=== PATIENT | female | born 1990 | race Caucasian/White ===

== ENCOUNTER → 2016-12-18 | Outpatient (CLI) | payer BC ==
[~2016-12-18] MED LIST: CALC1CAP24 PO; FERR1TAB23 PO; GLUT1TAB PO; MAGN-22 PO; MISCCAP80 PO; PREN1TAB29 PO
[2016-12-22 00:30] LABS: PARVOVIRUS IgG INDEX 7.8 (<0.9); PARVOVIRUS IgM INDEX 0.1 (<0.9)
== END | disposition home or self-care (01) ==
LOC: C.LAB 17:35
PROVIDERS: ATTEND Obstetrics & Gynecology
DX: O98.812 Other maternal infectious and parasitic diseases complicating pregnancy, second trimester (principal); Z20.828 Contact with and (suspected) exposure to other viral communicable diseases; Z3A.27 27 weeks gestation of pregnancy

== ENCOUNTER → 2016-12-27 | Outpatient (CLI) | payer BC ==
[2016-12-27 14:47] LABS: HEMATOCRIT 30.2 % (37-47)
[2016-12-27 15:47] LABS: URINE APPEARANCE CLEAR (CLEAR); URINE BILIRUBIN NEG (NEG); URINE COLOR YELLOW; URINE EPITHELIAL CELL AUTO >30 /lpf (0-5); URINE NITRITE NEG (NEG); URINE PH 8.5 (4.5-7.5); URINE SPECIFIC GRAVITY 1.011 (1.000-1.030); UROBILINOGEN NEG (NEG)
[2016-12-27 15:52] LABS: MANUAL MICROSCOPIC REQUIRED? NO; REVIEW REQ? NO
[2016-12-27 20:16] LABS: GTGD 50 Grams
== END | disposition home or self-care (01) ==
LOC: C.LAB1850 12:59
PROVIDERS: ATTEND Obstetrics & Gynecology
DX: Z34.03 Encounter for supervision of normal first pregnancy, third trimester (principal)

== ENCOUNTER → 2017-01-04 | Outpatient (CLI) | payer BC ==
[2017-01-04 10:02] LABS: ALT/SGPT 19 U/L (12-78); AST/SGOT 13 U/L (15-37); BLOOD UREA NITROGEN 6 mg/dl (7-18); BUN/CREATININE RATIO 14.2 (10-20); CALCIUM 8.7 mg/dl (8.5-10.1); CARBON DIOXIDE 26 mmol/L (21-32); CHLORIDE 104 mmol/L (98-107); CREATININE 0.44 mg/dl (0.60-1.20); GLUCOSE 90 mg/dl (70-99); POTASSIUM 3.8 mmol/L (3.5-5.1); SODIUM 138 mmol/L (136-145)
[2017-01-04 10:06] LABS: ALB/GLOB RATIO 0.6 (0.9-2); ALKALINE PHOSPHATASE 120 U/L (45-117); CHOLESTEROL 207 mg/dl (0-200); CHOLESTEROL/HDL RATIO 3.3; HDL CHOLESTEROL 62 mg/dl; LDL CHOLESTEROL CALCULATED 108 mg/dl; TRIGLYCERIDES 185 mg/dl (0-150); VERY LOW DENSITY LIPOPROT CALC 37 mg/dl
== END | disposition home or self-care (01) ==
LOC: C.LAB1850 07:35
PROVIDERS: ATTEND Obstetrics & Gynecology
DX: Z13.220 Encounter for screening for lipoid disorders (principal); O28.1 Abnormal biochemical finding on antenatal screening of mother; R19.00 Intra-abdominal and pelvic swelling, mass and lump, unspecified site; Z3A.00 Weeks of gestation of pregnancy not specified

== ENCOUNTER → 2017-02-22 | Outpatient (CLI) | payer BC | END | disposition home or self-care (01) | LOC: C.LABSPEC 15:24 | PROVIDERS: ATTEND Obstetrics & Gynecology | DX: Z34.03 Encounter for supervision of normal first pregnancy, third trimester (principal) ==

== ENCOUNTER 2017-03-06 11:35 | Inpatient (IN) | payer BC ==
[~2017-03-06] VITALS: Ht 157.5 cm; Wt 62.0 kg
[~2017-03-06 11:35] MED LIST changes: -CALC1CAP24 PO; -FERR1TAB23 PO
[2017-03-06] MEDS ORDERED: LACTATED RINGER'S 1000ML 1,000 ML IV SCH (12:22)
[2017-03-06] MEDS ORDERED: LACTATED RINGER'S 1000ML 1,000 ML IV PRN (12:22)
[2017-03-06 12:46] VITALS: Ht 157.5 cm; Wt 62.0 kg
[2017-03-06 12:54] LABS: HEMATOCRIT 37.6 % (37-47); MEAN CELL VOLUME 87.6 fL (80-100); MEAN CORPUSCULAR HEMOGLOBIN 31.2 pg (25-34); MEAN CORPUSCULAR HGB CONC 35.6 g/dl (32-36); MEAN PLATELET VOLUME 9.1 fL (7.4-10.4); PLATELET COUNT 263 K/uL (130-400); RED BLOOD COUNT 4.29 M/uL (4.2-5.4); WHITE BLOOD COUNT 11.75 K/uL (4.8-10.8)
--- NOTE | 2017-03-06 14:23 | Medical Student: [facility] ---
Med Student History & Physical Date of Service March 06, 2017. Chief Complaint R/O Labor History of Present Illness Source: patient, clinic records Pt is a 26yo F , URVASHI 03/17/17 via US and GA 38-3 weeks who presents for contractions. Her contractions began at ~15 min apart when she first called the hospital. She was told to call again when they were 5 mins. She did and was told to come in. As of now, her course has been uncomplicated. She has had no fluid loss, had some mild bleeding/mucus this morning. 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 Menarche: 14, LMP: 05/23/16 Last pap smear was ASGUS, but HPV neg Past Medical History UTI's and asthma (no inhaler) Past Surgical History Hx of inguinal hernia repair (2015) Family History No significant family hx Social History Smoking Status: Never Smoker Smokeless Tobacco Use: No Alcohol Use: none Drug Use: none Marital Status: Housing status: lives with significant other Occupational Status: employed Allergies Coded Allergies: NO KNOWN DRUG ALLERGIES (Verified Allergy, Unknown, ., 04/20/16) Dairy (Verified Adverse Reaction, Unknown, GI UPSET, 04/20/16) Home Medications Glutamine (L-Glutamine), 1 TAB PO BID Magnesium Malate (Bulk) (Magnesium Malate), 1 TAB PO HS Vit W/ Ferrous Fumara (), 1 TAB PO NOON Probiotic Product (Probiotic), 1 CAP PO QPM Review of Systems Constitutional: No chills, No fever, No sweats Eyes: No worsening of vision Respiratory: No cough, No shortness of breath, No wheezing Cardiovascular: No chest pain, No palpitations Abdomen: + nausea (present with contractions), + vomiting, No pain Genitourinary - Female: No dysuria, No urinary frequency Physical Exam General Appearance: WD/WN Head: normocephalic Respiratory/Chest: chest non-tender, lungs clear, normal breath sounds Cardiovascular: regular rate, rhythm, no gallop, no murmur Abdomen / GI: non tender, soft Extremities: no calf tenderness, no pedal edema Skin: normal color, warm/dry Cervix exam as performed by Dr. Lazo: 6.5 cm, 100% effaced, station: -1 Monitoring External Monitor: FHR: 140, accels present, no decels, category 1 Tocodynamometer: Contractions every 3-4 min Laboratory Results 03/06/17 12:45 Test 03/06/17 12:45 Red Blood Count 4.29 M/uL (4.2-5.4) Mean Corpuscular Volume 87.6 fL (80-100) Mean Corpuscular Hemoglobin 31.2 pg (25-34) Mean Corpuscular Hemoglobin Concent 35.6 g/dl (32-36) RDW Standard Deviation 38.7 fL (36.4-46.3) RDW Coefficient of Variation 12.1 % (11.5-14.5) Mean Platelet Volume 9.1 fL (7.4-10.4) Previous H/H: 08/10/16 = 12.5, 35.1% 12/27/16 = 10.7, 30.2% Assessment and Plan A/P: 26yo F at 38-3 weeks GA, with no complications in active labor. Her contractions are every 3-4 min, and her cervix has dilated to 6.5 cm and is 100 % effaced. tracing category 1. Plan: admit to L&D. Expectant management for now. Continue with EFM and [place]. If needed, use Pitocin to augment contractions and perform AROM.
[2017-03-06] MEDS ORDERED: BUTORPHANOL TARTRATE 1 MG/ML VIAL IV PRN (14:45)
[2017-03-06] MEDS ORDERED: BUPIVACAINE 0.25% 30 ML VIAL ONE (14:47)
[2017-03-06] MEDS ORDERED: EpHEDrine SULFATE INJ 50 MG/ML AMP ONE (14:47)
[2017-03-06] MEDS ORDERED: FENTANYL 2MCG/ML ROPIV 1.25MG/ML 100ML BAG EPI ONE (14:48)
[2017-03-06] MEDS ORDERED: FENTANYL CITRATE INJ 50 MCG/1 ML 2 ML VIAL ONE (14:48)
[2017-03-06] MEDS ORDERED: LACTATED RINGER'S 1000ML 500 ML IV PRN (16:58)
[2017-03-06] MEDS ORDERED: NALOXONE HCL INJ 1 MG in SODIUM CHLORIDE 0.9% 1000ML 1,000 ML IV PRN (16:58)
[2017-03-06] MEDS ORDERED: EpHEDrine SULFATE INJ 50 MG/ML AMP IV PRN (17:00)
[2017-03-06] MEDS ORDERED: NALBUPHINE HCL INJ 10 MG/ML AMP IV PRN (17:00)
[2017-03-06] MEDS ORDERED: FENTANYL 2MCG/ML ROPIV 1.25MG/ML 100ML BAG EPI PRN (17:00)
[2017-03-06] MEDS ORDERED: ONDANSETRON INJ 2 MG/ML 2 ML VIAL IV PRN (17:00)
[2017-03-06] MEDS ORDERED: DiphenhydrAMINE HCL 50 MG/ML VIAL IV PRN (17:00)
[2017-03-06] MEDS ORDERED: NALOXONE HCL INJ 0.4 MG/1 ML VIAL/CARP IV PRN (17:00)
[2017-03-06] MEDS ORDERED: OXYTOCIN 30 UNITS/500ML NSS IV ONE (17:49)
[2017-03-06] MEDS ORDERED: SUPERCREAM 0.870 % 15GM JAR EXT PRN (18:45)
[2017-03-06] MEDS ORDERED: OXYTOCIN 30 UNITS/500ML NSS IV PRN (18:45)
[2017-03-06] MEDS ORDERED: LANOLIN OINT EXT PRN ×2 (18:45)
[2017-03-06] MEDS ORDERED: HYDROCORTISONE ACETATE 25 MG SUPP PR PRN (18:45)
[2017-03-06] MEDS ORDERED: OXYCODONE/ACETAMINOPHEN 5-325 TAB PO PRN (18:45)
[2017-03-06] MEDS ORDERED: BENZOCAINE 20% AER SPR 82.5 GM CAN EXT PRN (18:45)
[2017-03-06] MEDS: DOCUSATE SODIUM 100 MG CAP PO SCH (20:00)
--- NOTE | 2017-03-06 20:46 | DELIVERY SUMMARY ---
DATE OF OPERATION: 03/06/2017 VAGINAL DELIVERY NOTE PREDELIVERY DIAGNOSES: 1. A 26-year-old G1, P0 at 38 weeks 3 days. 2. Spontaneous labor. POSTDELIVERY DIAGNOSES: Same. DELIVERING SURGEON: Dr. Lazo. PROCEDURE: 1. Vacuum assisted vaginal delivery. 2. Medial lateral episiotomy. 3. Repair of episiotomy and vaginal focal tear. ANESTHESIA: Epidural. DESCRIPTION OF DELIVERY: The patient progressed to complete with epidural anesthesia. She then began to push. heart tracing had been category 1; however, just prior to beginning to push, the patient began to experience late decelerations that were nonrecurrent. She was given oxygen by mask and IV fluid bolus. Since she was completely dilated in a +1-2 station, she continued to push. When she had a contraction and she was feeling the urge to push, so she continued to push and heart tracing dropped to the 80s and did return to baseline; however, with each contraction, dropped to the 80s and 90s and when baby was at a +2 station, heart tracing was consistently in the 90s. At this time, I counseled the patient on the need for episiotomy and attempted vacuum delivery. A right medial lateral episiotomy was cut and the [place] vacuum was used to gently guide the head through the pelvis with maternal pushing effort at the same time. Three pop offs of the vacuum were noted at this time. The head progressed significantly through the pelvis with a +3 station. At this time, the heart tracing actually improved and the heart tones were in the 120s. The patient was then encouraged to push with contractions as she was now making much better progress with pushes. The head was then delivered from a left occiput anterior position with a nuchal cord x1 that was delivered through. The anterior and posterior shoulders delivered at the same time as well as the body. The baby was warmed and dried and was placed on mother's abdomen. The cord was doubly clamped and cut. A segment was retained for gases and cord blood was obtained. The baby was handed off to the awaiting pediatrics team, who had been assembled prior to delivery. The placenta was then delivered spontaneously intact with a 3-vessel cord. The uterus and vagina were swept of all clots and debris. Pitocin was given. The uterus became firm. The cervix, vagina and perineum were inspected and the episiotomy was noted to not extend beyond the second degree and a left vaginal focal tear was noted. Both of these tears were repaired in standard fashion with 3-0 Vicryl and excellent hemostasis was observed. The patient tolerated the delivery well. The sponge, instrument and needle counts were correct x2 at the conclusion of the delivery. I discussed with the patient events leading up to delivery including the persistent bradycardia and therefore a need for episiotomy and vacuum assistance of delivery and the patient verbalized understanding of the events leading to delivery. Baby recovered in the room with mom. I attest to the content of the Intraoperative Record and any orders documented therein. Any exceptions are noted below. SUDHIR
--- NOTE | 2017-03-06 21:07 | Anesthesia Procedure Note ---
Anesthesia Epidural Removal Nt Date & Time March 06, 2017 at 21:07 Vital Signs Pain Intensity: 2 Notes Mental Status: alert / awake / arousable, participated in evaluation Nausea / Vomiting: adequately controlled Pain: adequately controlled Airway Patency, RR, SpO2: stable & adequate BP & HR: stable & adequate Hydration State: stable & adequate Neuraxial Anesthesia: was administered Anesthetic Complications: no major complications apparent, pt satisfied with anesthetic care Epidural: removed without complications, with tip intact
[2017-03-06] MEDS: IBUPROFEN 600 MG TAB PO PRN (21:54)
[2017-03-06 22:10] VITALS: BP 126/74; PULSE 88; TEMP 36.8; O2SAT 97
[2017-03-06 23:40] VITALS: BP 99/64; PULSE 85; TEMP 36.7
[2017-03-07 00:10] VITALS: BP 106/68; PULSE 90; TEMP 36.9; O2SAT 98
[2017-03-07] MEDS: IBUPROFEN 600 MG TAB PO PRN ×6 (02:27→23:40)
[2017-03-07 04:20] VITALS: BP 115/73; PULSE 81; TEMP 36.7; O2SAT 98
--- NOTE | 2017-03-07 06:53 | Progress Note ---
Subjective March 07, 2017. Subjective conversation w/ patient, physical exam, lab review Ambulation: ambulating normally Voiding: no voiding problems Passing Gas: No Diet Tolerance: Regular Diet Lochia: Moderate Feeding Type: Breast Feeding Pain: cramp, improves with med Comment: Patient was seen at the bedside. No acute event overnight. Review of Systems Constitutional: No fever Respiratory: No cough, No shortness of breath Cardiac: No chest pain Breast: No breast lump Abdomen: No nausea, No pain, No vomiting Female : No dysuria Denies headache Objective Vital Signs Date Time Temp Pulse Resp B/P Pulse Ox O2 Delivery O2 Flow Rate FiO2 03/07/17 04:20 36.7 81 16 115/73 98 Room Air 03/07/17 00:10 36.9 90 16 106/68 98 Room Air 03/06/17 22:10 Room Air 03/06/17 22:10 36.8 88 18 126/74 97 Room Air Physical Exam General Appearance: WELL-APPEARING, WD/WN, NO APPARENT DISTRESS Respiratory/Chest: chest non-tender, lungs clear, normal breath sounds, no respiratory distress Cardiovascular: regular rate, rhythm Abdomen: normal bowel sounds, non tender, soft Fundus: Firm, Relation to Umbilicus (about 3cm below U) Extremities: non-tender, no pedal edema, no calf tenderness Laboratory Results Last 24 Hours Test 03/06/17 12:45 03/07/17 06:30 White Blood Count 11.75 K/uL Red Blood Count 4.29 M/uL Hemoglobin 13.4 g/dL Hematocrit 37.6 % Mean Corpuscular Volume 87.6 fL Mean Corpuscular Hemoglobin 31.2 pg Mean Corpuscular Hemoglobin Concent 35.6 g/dl RDW Standard Deviation 38.7 fL RDW Coefficient of Variation 12.1 % Platelet Count 263 K/uL Mean Platelet Volume 9.1 fL Medications Current Inpatient Medications Medications (Trade) Dose Ordered Sig/Kaycee Route Start Time Stop Time Status Last Admin Dose Admin Lactated Ringer's (Lr 1000ml) 1,000 ml @ 125 mls/hr Q8H IV 03/06/17 12:22 03/08/17 12:21 Butorphanol Tartrate (Stadol Inj) 1 mg NOW PRN IV 03/06/17 14:45 04/05/17 14:44 Oxytocin (Pitocin IV) 30 units UD PRN IV 03/06/17 18:45 04/05/17 18:44 Benzocaine (Dermoplast Aero Spr) 1 appln PRN PRN EXT 03/06/17 18:45 04/05/17 18:44 Cocaine HCl (Supercream 0.870% Cr) BID PRN EXT 03/06/17 18:45 03/20/17 18:44 Hydrocortisone Acetate (Anusol Hc Supp) 25 mg BID PRN IA 03/06/17 18:45 04/05/17 18:44 Lanolin (Lanolin Oint) PRN PRN EXT 03/06/17 18:45 04/05/17 18:44 Ibuprofen (Motrin Tab) 600 mg Q4H PRN PO 03/06/17 18:45 04/05/17 18:44 03/07/17 02:27 600 MG Oxycodone/ Acetaminophen (Percocet 5-325mg Tab) 1 tab Q4H PRN PO 03/06/17 18:45 03/20/17 18:44 Bisacodyl (Dulcolax Tab) 5 mg 20 PO 03/07/17 20:00 03/07/17 20:01 Docusate Sodium (coLACE CAP) 100 mg BID PO 03/06/17 20:00 04/05/17 19:59 Assessment and Plan Post- Day#: 1 Continue Routine Care: A/P: This is a 26 y/o female, , s/p normal vaginal delivery. She is ambulating and clinically stable. Plan: - Vitals signs are reviewed and WNL (Tmax 36.9 ) - Last Hgb is 13.4 - Blood type O+, GBS neg, Rubella Immune - Routine care - Encourage ambulation, monitor and control pain with medication as needed , continue with regular diet as tolerated and monitor lochia - Stool softeners and sitz bath recommended - Encourage breast feeding and educate about breast feeding Resident Physician Supervision Note: I was present with Dr. Prabhakar during the history and exam. I discussed the case with the resident and agree with the findings and plan as documented in the note. Any exceptions or clarifications are listed here: PPD#1 s/p VAVD. Doing well. Continue routine care. Documented By: Barbra Lazo
[2017-03-07 06:54] LABS: HEMATOCRIT 29.7 % (37-47)
[2017-03-07 08:05] VITALS: BP 111/70; PULSE 92; TEMP 36.5; O2SAT 99
[2017-03-07] MEDS: DOCUSATE SODIUM 100 MG CAP PO SCH ×2 (08:22→19:36)
[2017-03-07 11:47] VITALS: BP 108/66; PULSE 80; TEMP 36.5; O2SAT 99
[2017-03-07 15:30] VITALS: BP 110/74; PULSE 75; TEMP 36.6
[2017-03-07] MEDS ORDERED: BISACODYL 5 MG TABEC PO SCH (20:00)
[2017-03-07 23:40] VITALS: BP 99/64; PULSE 85
[2017-03-08] MEDS: IBUPROFEN 600 MG TAB PO PRN ×5 (03:29→20:27)
--- NOTE | 2017-03-08 06:26 | Discharge Instructions ---
Discharge Instructions Date of Service March 07, 2017. Admission Reason for Admission: R/O Labor Discharge Discharge Diagnosis / Problem: s/p vaginal delivery Discharge Goals Goal(s): Routine recovery after delivery Medications Continue Dispensed Medications: supercream, dermaplast, tucks, lansinoh Activity Recommendations Activity Limitations: as noted below . Instructions / Follow-Up Instructions / Follow-Up ACTIVITY RECOMMENDATIONS: * Gradual return to full activity over the next 2-3 weeks. * No lifting - nothing heavier than baby over the next 2-3 weeks. * Do not engage in vigorous exercise, sexual activity or sports until cleared by your physician. * Do not drive or operate any motorized equipment until cleared by your physician. * You may shower/bathe daily. MEDICATIONS: For discomfort or pain, you may use Acetaminophen (Tylenol), Ibuprofen (Advil), or Naproxen (Aleve) following the package directions. For constipation you may use Colace following the package directions. BREAST CARE: If you are not breast feeding: * Wear a supportive bra 24 hours a day for one to two weeks. * Avoid stimulating your breasts and nipples as much as possible during the first few weeks after delivery. * When taking a shower, have the warm water hit your back, not breasts. * When your breasts feel full, apply ice packs. Usually three to four times a day helps ease the discomfort. * Take a mild pain medication (Tylenol / Motrin) when you are uncomfortable. If breast feeding: * Use breast milk to lubricate nipples. Lansinoh cream may be used for sore nipples. You do not need to remove cream prior to breast feeding. If using a different brand of cream, check the label for directions regarding removal of cream prior to nursing. * Wear a supportive bra. * If having problems with breasts or breast feeding, call a solution consultant or your health care provider. EPISIOTOMY CARE: After delivery, if you have an episiotomy (stitches), the following steps will ease discomfort and aid healing. * For the first 24 hours after delivery, place ice packs next to your episiotomy to help reduce swelling. * After the first 24 hour-period, sitz baths, either portable or in the tub, are suggested. A shower with a shower arm sprayed over the episiotomy may be comforting. * Lea care should be done after each voiding and bowel movement. Squirt warm water from a plastic bottle over the perineum (region of the body between the anus and urinary opening) and pat dry. * Use Dermoplast to ease discomfort. Shake container. [place] directly over the episiotomy. Place a Tucks on a clean sanitary pad next to your episiotomy. SPECIAL CARE INSTRUCTIONS: When you are discharged from the hospital, it is important for you to follow the instructions listed below: * During the first week at home, you should be able to care for yourself and your baby. In addition, the usual light household activities are encouraged. * Limit your activities to the way you feel. Do not try to clean the house or move furniture. Be sensible. * If you actively engage in sports and have done so up until the time of your delivery, you may resume these activities as soon as you feel able. This may take up to one month or even longer. Use good judgment. * Continue to take your vitamins for at least six weeks after the of your baby. * Your diet need not be limited unless you were on a special diet before your delivery. Breast-feeding mothers need around 2500 calories per day and at least 64-80 ounces of fluid per day (8 to 10 glasses). * You should eat foods from the four major food groups. Crash diets or fad diets are to be avoided. Eating lean meats, fresh fruits and vegetables, low-fat dairy products, high fiber foods and a regular exercise program, will help you get back to your pre- weight without putting your health at risk. * Constipation is sometimes a problem after delivery. Take a mild laxative as needed. If breast feeding, Milk of Magnesia is acceptable to use. You may use a suppository or Fleets enema if no episiotomy. * A daily shower or tub bath is suggested. Be sure to thoroughly and gently dry the perineum. * A bloody vaginal discharge will usually continue until around four weeks post . A small amount of bleeding may continue for as long as six weeks. Vaginal discharge changes from the bright red bleeding after delivery to pink then brownish and finally yellowish-pink before becoming white and disappearing. * Bleeding may increase with activity. Your first period may come in 4-8 weeks. If you are breast feeding, your period may be delayed even longer. * [place] (sex) can begin whenever both you and your partner feel comfortable and do not have any form of genital infection. It is recommended that you wait at least six weeks for internal and external healing to occur. If you have questions, please talk to your health care practitioner. A condom should be used to prevent infection and . * Foreplay, gentle intercourse and lubrication is very important the first several times to prevent pain. A water-based lubricant such as K-Y jelly or Astroglide may be used. * If you have RH negative blood and your baby is RH positive, you will receive RHOGAM by injection prior to discharge. The nurse will give you a card to keep with you that has the date and place that you received RHOGAM after delivery. * During your care, you had a Rubella screen done to check for the presence of rubella antibodies in your blood. If your test was negative, you will receive a Rubella vaccine prior to discharge. This vaccine may cause a fever, soreness at the injection site and flu-like symptoms. If these symptoms persist, notify your health care practitioner. is not advised for one month after a Rubella vaccine. * Verbalizes understanding of car seat law as reviewed with patient nursing. * Car Seat hand-out given and reviewed with patient by nursing. * Shaken baby information reviewed with patient by nursing. Call you doctor if: * Heavy bleeding (saturating several pads an hour) or passing clots the size of your fist. * A fever >101 degrees F (38.3 degrees C) on two occasions four hours apart and /or chills. * Unusual pain in the pelvic or vaginal areas. * "Baby Blues" lasting longer than two weeks. If you have any questions or concerns, call your health care practitioner at . FOLLOW UP VISIT: * Please call the office at to schedule a 6 week examination. It is important you keep this appointment. It is important for you to make arrangements for either yearly or twice yearly check-ups thereafter. Current Hospital Diet Patient's current hospital diet: Regular OB Diet Discharge Diet Recommended Diet: Regular Diet Pending Studies Studies pending at discharge: no Laboratory Results Lipid Panel Test 01/04/17 07:40 Range/Units Triglycerides Level 185 H 0-150 mg/dl Cholesterol Level 207 H 0-200 mg/dl HDL Cholesterol 62 mg/dl Cholesterol/HDL Ratio 3.3 LDL Cholesterol, Calculated 108 mg/dl Medical Emergencies . Who to Call and When: Medical Emergencies: If at any time you feel your situation is an emergency, please call 911 immediately. . Non-Emergent Contact Non-Emergency issues call your: Director Digital Advertising Call Non-Emergent contact if: you have a fever, temperature is above 101 . . "Provider Documentation" section prepared by Tami Prabhakar. . VTE Core Measure Inpt VTE Proph given/why not?: Treatment not indicated
--- NOTE | 2017-03-08 06:26 | Progress Note ---
Subjective March 08, 2017. Subjective conversation w/ patient, physical exam, lab review Ambulation: ambulating normally Voiding: no voiding problems Passing Gas: Yes Diet Tolerance: Regular Diet Lochia: Small Feeding Type: Breast Feeding Pain: denies pain Comment: Patient was seen at the bedside. No acute event overnight. Review of Systems Constitutional: No fever Respiratory: No cough, No shortness of breath Cardiac: No chest pain Breast: No breast lump Abdomen: No nausea, No pain, No vomiting Female : No dysuria, No urinary frequency Patient was seen at the bedside. No acute event overnight. Objective Vital Signs Date Time Temp Pulse Resp B/P Pulse Ox O2 Delivery O2 Flow Rate FiO2 03/07/17 23:40 85 18 99/64 Room Air 03/07/17 23:40 Room Air 03/07/17 15:30 Room Air 03/07/17 15:30 36.6 75 20 110/74 Room Air 03/07/17 11:47 36.5 80 16 108/66 99 Room Air 03/07/17 08:05 36.5 92 16 111/70 99 Room Air 03/07/17 08:05 Room Air Physical Exam General Appearance: WELL-APPEARING, WD/WN, NO APPARENT DISTRESS Respiratory/Chest: chest non-tender, lungs clear, normal breath sounds, no respiratory distress Cardiovascular: regular rate, rhythm Abdomen: normal bowel sounds, non tender, soft Fundus: Firm, Relation to Umbilicus (about 3cm below U) Extremities: non-tender, no pedal edema, no calf tenderness Laboratory Results Last 24 Hours Test 03/07/17 06:30 Hemoglobin 10.4 g/dL Hematocrit 29.7 % Medications Current Inpatient Medications Medications (Trade) Dose Ordered Sig/Kaycee Route Start Time Stop Time Status Last Admin Dose Admin Lactated Ringer's (Lr 1000ml) 1,000 ml @ 125 mls/hr Q8H IV 03/06/17 12:22 03/08/17 12:21 Butorphanol Tartrate (Stadol Inj) 1 mg NOW PRN IV 03/06/17 14:45 04/05/17 14:44 Oxytocin (Pitocin IV) 30 units UD PRN IV 03/06/17 18:45 04/05/17 18:44 Benzocaine (Dermoplast Aero Spr) 1 appln PRN PRN EXT 03/06/17 18:45 04/05/17 18:44 Cocaine HCl (Supercream 0.870% Cr) BID PRN EXT 03/06/17 18:45 03/20/17 18:44 Hydrocortisone Acetate (Anusol Hc Supp) 25 mg BID PRN ND 03/06/17 18:45 04/05/17 18:44 Lanolin (Lanolin Oint) PRN PRN EXT 03/06/17 18:45 04/05/17 18:44 Ibuprofen (Motrin Tab) 600 mg Q4H PRN PO 03/06/17 18:45 04/05/17 18:44 03/08/17 03:29 600 MG Oxycodone/ Acetaminophen (Percocet 5-325mg Tab) 1 tab Q4H PRN PO 03/06/17 18:45 03/20/17 18:44 Docusate Sodium (coLACE CAP) 100 mg BID PO 03/06/17 20:00 04/05/17 19:59 03/07/17 19:36 100 MG Assessment and Plan Post- Day#: 2 Continue Routine Care: A/P: This is a 26 y/o female, , s/p normal vaginal delivery. She is ambulating and clinically stable to discharge. - Vital signs are reviewed and WNL (Tmax 36.9 ) - Last Hgb 10.4 - Blood type O+, GBS neg, Rubella Immune - No signs of depression. - Routine care - Discussed resting, feeding, pain control, mastitis, control, follow up in 6 weeks and reasons to call sooner, if necessary. - Continue with pain medication as needed, and continue vitamins. - Encourage breast feeding and educate about breast feeding - Patient understands and keen for home. - Plan to discharge home Resident Physician Supervision Note: I interviewed and examined the patient. Discussed with Dr. Prabhakar and agree with findings and plan as documented in the note. Any exceptions or clarifications are listed here: [None] Documented By: Birgit Calero
[2017-03-08 07:08] VITALS: BP 107/71; PULSE 78; TEMP 36.6; O2SAT 98
[2017-03-08] MEDS: DOCUSATE SODIUM 100 MG CAP PO SCH ×2 (08:11→20:27)
[2017-03-08 15:45] VITALS: BP 117/78; PULSE 89; TEMP 36.7
[2017-03-09] MEDS ORDERED: FERR1TAB23 PO (17:15)
[2017-03-09] MEDS ORDERED: CALC1CAP24 PO (17:15)
== END 2017-03-08 21:16 | disposition home or self-care (01) | DRG 775 ==
LOC: C.OPB 11:35 → C.LD 11:35 → C.OPB 12:23 → C.OBG 22:16 → EDSTATUS 03-17 11:36
PROVIDERS: ADMIT Obstetrics & Gynecology; ATTEND Obstetrics & Gynecology
PROC: 10D07Z6 Extraction of Products of Conception, Vacuum, Via Natural or Artificial Opening (ICD-10-PCS; principal; 2017-03-06)
PROC: 0W8NXZZ Division of Female Perineum, External Approach (ICD-10-PCS; principal; 2017-03-06)
PROC: 0UQGXZZ Repair Vagina, External Approach (ICD-10-PCS; principal; 2017-03-06)
DX: O76 Abnormality in fetal heart rate and rhythm complicating labor and delivery (principal); O71.4 Obstetric high vaginal laceration alone; O69.81X0 Labor and delivery complicated by cord around neck, without compression, not applicable or unspecified; Z3A.38 38 weeks gestation of pregnancy; Z37.0 Single live birth

== ENCOUNTER 2017-03-09 16:39 | Emergency (ER) | payer BC ==
[~2017-03-09] VITALS: Ht 157.5 cm; Wt 57.2 kg
[2017-03-09 16:47] VITALS: BP 138/79; TEMP 36.6; Ht 157.5 cm; Wt 57.2 kg
[2017-03-09] MEDS ORDERED: CALC1CAP24 PO (17:15)
[2017-03-09] MEDS ORDERED: FERR1TAB23 PO (17:15)
[2017-03-09] MEDS ORDERED: LIDOCAINE HCL 1% 20 ML VIAL ONE (17:42)
[2017-03-09 18:01] VITALS: PULSE 78; O2SAT 99
--- NOTE | 2017-03-09 18:05 | Medical Consult ---
Consultation Date of Consultation: March 09, 2017. Attending Physician: Dr. Anderson Reason for Consultation: problems with her perineal tear History of Present Illness Patient is a 26yowf who delivered on and was discharged home on Saturday. VAVD with episotomy and repair. Was doing well until this am when she noted increasing pain at her stitches. She notes something "sticking out" from down there. It is painful and she is concerned. She has also noted some urge incontinence today. Patient notes that her bleeding is unchanged. no f/c/n/v/d /c. Very tender. Family History No pertinent family history Social History Smoking Status: Never Smoker Smokeless Tobacco Use: No Alcohol Use: none Drug Use: none Marital Status: Occupation Status: employed Allergies Coded Allergies: Egg Yolk (Unverified Allergy, Unknown, UNKNOWN, 03/09/17) NO KNOWN DRUG ALLERGIES (Verified Allergy, Unknown, ., 03/06/17) Whey (Unverified Allergy, Unknown, GI ISSUES, 03/09/17) Dairy (Verified Adverse Reaction, Unknown, GI UPSET, 03/09/17) Review of Systems negative except as noted above. Physical Exam Date Time Temp Pulse Resp B/P Pulse Ox O2 Delivery O2 Flow Rate FiO2 03/09/17 16:47 36.6 102 20 138/79 98 Room Air General Appearance: WD/WN, no apparent distress Genitourinary - Female: + pertinent finding (The perineum is evauated. There is a small bit of swelling. There is a peice of perineal skin that has become free and is a flap from the other side. this is the abnomalitiy noted by the patient. Otherwise the area is healing appropriately for day 4 PP. I have recommended that we excise this little flap of skin and she agrees. The risks were discussed and include bleeding, pain and infection. The area is cleaned with betadine. It was injected with about 0.5cc of 1% lidocaine without epi. The skin flap was lifted with a cloth picker and was excised with a scissor. There was no bleeding. All other perineal stitches are intact. Minimal, normal appearing lochia is noted.) Neurologic/Psych: alert, normal mood/affect, oriented x 3 Assessment & Plan Excess perineal skin from episotomy repair. Excised under local anesthetic. Tolerated well. Patient is to continue her sitz baths and pericare at home as instructed. To call with any concerns.
--- NOTE | 2017-03-09 23:40 | EMERGENCY ROOM VISIT NOTE ---
History Report prepared by Eran: Dorina Smith Under the Supervision of: Dr. Walter Anderson D.O. First contact with patient: 16:54 Chief Complaint: OTHER COMPLAINT Stated Complaint: PAIN WITH EPISIOTOMY SITE History of Present Illness The patient is a 26 year old female who presents to the Emergency Room with complaints of worsening pain at her episiotomy site starting today. She reports that she gave a vaginal three days ago. She states that there were complications with the baby during the and the goal was to get the baby out as quickly as possible. She states that she has had multiple tears. She reports that she still has vaginal swelling, but that the bleeding has started to slow. The patient states that when she looked in the mirror, she noticed a piece coming out of her vagina that she does not think is supposed to be there. She states that this piece rubs on things and is becoming irritated. The patient also complains of burning when she urinates and the inability to hold her urine when she gets to the toilet. The patient denies any fevers. 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 Source of History: patient Onset: today Position: other (vaginal) Quality: burning Timing: worsening Associated Symptoms: No fevers Note: The patient complains of burning when urinating, inability to hold urine, vaginal swelling, and lightening bleeding. Review of Systems See HPI for pertinent positives & negatives. A total of 10 systems reviewed and were otherwise negative. Past Medical & Surgical Medical Problems: (1) Spontaneous onset of labor Surgical Problems: (1) Hernia Family History No pertinent family history Social History Smoking Status: Never Smoker Drug Use: none Marital Status: Occupation Status: employed Current/Historical Medications Scheduled Calcium (Calcium), 500 MG PO DAILY Ferrous Sulfate (Iron), 325 MG PO QAM Vit W/ Ferrous Fumara (), 1 TAB PO NOON Probiotic Product (Probiotic), 1 CAP PO QPM Allergies Coded Allergies: Egg Yolk (Unverified Allergy, Unknown, UNKNOWN, 03/09/17) NO KNOWN DRUG ALLERGIES (Verified Allergy, Unknown, ., 03/06/17) Whey (Unverified Allergy, Unknown, GI ISSUES, 03/09/17) Dairy (Verified Adverse Reaction, Unknown, GI UPSET, 03/09/17) Physical Exam Vital Signs Date Time Temp Pulse Resp B/P Pulse Ox O2 Delivery O2 Flow Rate FiO2 03/09/17 18:01 78 18 99 03/09/17 16:47 36.6 102 20 138/79 98 Room Air Physical Exam GENERAL: Patient is awake, alert, and in no acute distress. Patient is resting comfortably and showing no signs of anxiety EYES: The conjunctivae are clear. The pupils are round and reactive. EARS, NOSE, MOUTH AND THROAT: The nose is without any evidence of any deformity. Mucous membranes are moist tongue is midline NECK: The neck is nontender and supple. RESPIRATORY: Normal respiratory effort is noted there is no evidence of wheezing rhonchi or rales CARDIOVASCULAR: Regular rate and rhythm noted there no murmurs rubs or gallops normal S1 normal S2 GASTROINTESTINAL: The abdomen is soft. Bowel sounds are present in all quadrants. Abdomen is nontender : External genitalia normal in appearance. There was a episiotomy site noted which was ecchymotic and swollen. Significant tenderness, no active bleeding, urethra is clear, signs of ecchymosis in posterior etudes. MUSCULOSKELETAL/EXTREMITIES: There is no evidence of gross deformity full range of motion is noted in the hips and shoulders SKIN: There is no obvious evidence of any rash. There are no petechiae, pallor or cyanosis noted. NEUROLOGIC: Patient is awake alert and oriented x3 strength is symmetric patellar reflexes are 2+ bilaterally Medical Decision & Procedures ED Course 1700: The patient was evaluated in room C2A. A complete history and physical examination were performed. 1739: I discussed the patient's case with Dr. Oates. She is going to trim the piece that the patient claims is becoming irritated. 1802: Upon reevaluation, the patient is resting comfortably. I discussed the results and treatment plan with her. The patient verbalized agreement of the treatment plan. She was discharged home. Medical Decision Differential diagnosis: Etiologies such as cellulitis, abscess, MRSA infection, DVT, necrotizing fasciitis, dermatitis, drug eruption, as well as others were entertained.. Nursing notes reviewed. The patient is a 26-year-old female who presented to the emergency department for an evaluation of pain around her episiotomy site. The patient had a significant hematoma but did not appear to have any signs of trauma to her urethra. I discussed her case with her covering PROJECT ASST physician. She was evaluated in the emergency department by the covering PROJECT ASST physician. She had debridement of this area and tolerated this procedure well. She was encouraged to follow-up with her PROJECT ASST physician for further management or return to emergency department immediately if symptoms change worsen or the need arises. Consults Time Called: [phone] Consulting Physician: Dr. Oates Returned Call: [phone] I discussed the patient's case with Dr. Oates. She is going to trim the piece that the patient claims is becoming irritated. Impression Primary Impression: Visit for wound check Scribe Attestation The scribe's documentation has been prepared under my direction and personally reviewed by me in its entirety. I confirm that the note above accurately reflects all work, treatment, procedures, and medical decision making performed by me. Departure Information Dispostion Home / Self-Care Referrals Elsie Seals C.R.N.P. (PCP) Forms HOME CARE DOCUMENTATION FORM, IMPORTANT VISIT INFORMATION, WORK / SCHOOL INSTRUCTIONS Patient Instructions My [facility] Additional Instructions Follow-up with your PROJECT ASST doctor as scheduled. Continue all medications as prescribed. Continue wound care as previous.
== END 2017-03-09 18:02 | disposition home or self-care (01) ==
LOC: C.EDB 16:40 → C.EDC 18:02
DX: Z00.00 Encounter for general adult medical examination without abnormal findings (principal); Z79.899 Other long term (current) drug therapy; Z91.018 Allergy to other foods; Z91.011 Allergy to milk products

== ENCOUNTER → 2017-04-23 | Outpatient (CLI) | payer BC ==
[~2017-04-23] MED LIST changes: +CALC1CAP24 PO; +FERR1TAB23 PO; -GLUT1TAB PO; -MAGN-22 PO
== END | disposition home or self-care (01) ==
LOC: C.PAPS 09:33
PROVIDERS: ATTEND Obstetrics & Gynecology
DX: Z39.2 Encounter for routine postpartum follow-up (principal)

== ENCOUNTER → 2017-10-15 | Outpatient (CLI) | payer BC | END | disposition home or self-care (01) | LOC: C.LABSPEC 14:44 | PROVIDERS: ATTEND Obstetrics & Gynecology | DX: R10.2 Pelvic and perineal pain (principal) ==

== ENCOUNTER 2019-01-16 04:55 | Inpatient (IN) ==
[2019-01-16] MEDS ORDERED: LACTATED RINGER'S 1,000 ML IV PRN ×2 (05:20→05:44)
[2019-01-16] MEDS ORDERED: OXYTOCIN 30 UNITS/500 ML BAG IV PRN ×2 (05:20→10:35)
[2019-01-16] MEDS ORDERED: LACTATED RINGER'S 1,000 ML IV SCH ×2 (05:30→10:45)
[2019-01-16] MEDS ORDERED: BUPIVACAINE 0.25% 30 ML VIAL ONE (05:39)
[2019-01-16] MEDS ORDERED: fentaNYL 2MCG/ML ROPIV 1.25MG/ML 100 ML BAG EPI ONE (05:40)
[2019-01-16] MEDS ORDERED: fentaNYL citrate 100 MCG/2 ML VIAL ONE (05:40)
[2019-01-16] MEDS ORDERED: ePHEDrine sulfate 50 MG/ML AMP ONE (05:40)
[2019-01-16] MEDS ORDERED: ONDANSETRON INJ 2 MG/ML 2 ML VIAL IV PRN (05:44)
[2019-01-16] MEDS ORDERED: ePHEDrine sulfate 50 MG/ML AMP IV PRN (05:44)
[2019-01-16] MEDS ORDERED: NALOXONE HCL 0.4 MG/1 ML VIAL/CARP IV PRN (05:44)
[2019-01-16] MEDS ORDERED: fentaNYL 2MCG/ML ROPIV 1.25MG/ML 100 ML BAG EPI PRN (05:44)
[2019-01-16] MEDS ORDERED: NALOXONE HCL 1 MG in SODIUM CHLORIDE 0.9% 1000ML 1,000 ML IV PRN (05:44)
[2019-01-16] MEDS ORDERED: DiphenhydrAMINE HCL 50 MG/ML VIAL IV PRN (05:44)
[2019-01-16] MEDS ORDERED: NALBUPHINE HCL INJ 10 MG/ML AMP IV PRN (05:44)
--- NOTE | 2019-01-16 05:46 | Anesthesiology Consultation ---
Date of Service January 16, 2019 Assessment & Plan (1) Encounter for pre-operative examination: Chart Review Chart Review: Patient NOT seen in Pre Admission Testing and Acceptable Risk for Labor Epidural Consults Requested none History Height/Weight Height: 5 ft 2 in Weight: 64.436 kg Allergies Allergy/AdvReac Type Severity Reaction Status Date / Time mustard Allergy Severe SEVERE ABD Verified 07/31/18 18:33 PAIN, GI UPSET egg Allergy Intermediate Gastrointestinal Verified 07/31/18 18:33 Upset whey Allergy Intermediate GI ISSUES Verified 07/31/18 18:33 milk AdvReac Intermediate GI UPSET Verified 07/31/18 18:33 Medications Home Medications Medication Instructions Recorded Confirmed Last Taken PNV cmb#95-ferrous fumarate-FA 1 tab PO QAM 07/31/18 07/31/18 07/31/18 [] ferrous sulfate 325 mg PO QAM 07/31/18 07/31/18 07/31/18 Past Medical History Medical History Dermoid cyst Past Surgical History Surgical History Hernia Past Anesthesia History No Hx of Anesthesia Complications and No Family Hx of Anesthesia Complications History of PONV No Motion Sickness Screening History of Motion Sickness: No Social History Smoking Status: Never smoker Hx Alcohol Use: No Hx Substance Use: No Exercise / Class Metabolic Activity II 4-5 Yardwork/Stairs/Walk up hill Physical Exam Vital Signs Last Vital Signs Temp 36.8 C 01/16/19 05:20 Pulse 93 H 01/16/19 06:05 Resp 18 01/16/19 05:20 BP 153/88 H 01/16/19 06:05 Pulse Ox 100 01/16/19 06:05 Testing Laboratory Results 01/16/19 05:38
[2019-01-16 06:00] LABS: Hemoglobin 11.2 g/dL (12.0-16.0); Mean Corpuscular Volume 87.7 fL (80-100); Mean Platelet Volume 9.3 fL (7.4-10.4); Platelet Count 215 K/uL (130-400); Red Blood Count 3.65 M/uL (4.2-5.4); White Blood Count 6.26 K/uL (4.8-10.8)
--- NOTE | 2019-01-16 06:38 | Labor Progress Brief Note ---
Date of Service January 16, 2019 Subjective @ 38wk with SROM at 3:30am at home, found dilated by RN upon arrival. Has now received epidural and is comfortable. Assessment & Plan (1) Normal labor and delivery: Spontaneous progress to ruptured and 8cm. GBS neg. Continue expectant management and epidural. Present on Admission?: Yes Physical Exam Vital Signs (Past 24 Hours): Last Vital Signs Temp 36.8 C 01/16/19 05:20 Pulse 85 01/16/19 06:32 Resp 18 01/16/19 05:20 BP 119/83 01/16/19 06:32 Pulse Ox 99 01/16/19 06:30 Physical Exam: FHT Cat 1 [place] Q1-4 irreg Cvx 8/90/+1 LOF clear Moderate bloody show
[2019-01-16] MEDS ORDERED: IBUPROFEN 600 MG TAB PO PRN (10:35)
[2019-01-16] MEDS ORDERED: HYDROCORTISONE ACETATE 25 MG SUPP PR PRN (10:35)
[2019-01-16] MEDS ORDERED: DIPHTHERIA/TETANUS/PERTUSSIS 0.5 ML SYR/VIAL IM ONE (10:35)
[2019-01-16] MEDS ORDERED: OXYCODONE/ACETAMINOPHEN 5mg/325mg TAB PO PRN (10:35)
[2019-01-16] MEDS ORDERED: BISACODYL 10 MG SUPP PR PRN (10:35)
[2019-01-16] MEDS ORDERED: SUPERCREAM 0.870% 15 GM JAR EXT PRN (10:35)
[2019-01-16] MEDS ORDERED: BENZOCAINE 20% AER SPR 82.5 GM CAN EXT PRN (10:35)
[2019-01-16] MEDS: ACETAMINOPHEN 325 MG TAB PO PRN ×3 (10:46→23:21)
--- NOTE | 2019-01-16 11:14 | Procedure Note ---
Vaginal Delivery Summary Date of Service January 16, 2019 Vaginal Delivery Summary Predelivery diagnoses: A 28-year-old 001 at 38 weeks, spontaneous rupture of membranes at home, spontaneous labor, history of removal of dermoid cyst of ovary at 20 weeks , history of skull fracture and prior after vacuum delivery Postdelivery diagnoses: Same, second-degree perineal laceration Procedure: Spontaneous vaginal delivery, repair of second-degree perineal lacera tion, removal of vaginal skin tag Estimated blood loss: 300 mL Surgeon: Dr. Lazo Complications: None Description of delivery: The patient presented in spontaneous labor with spontaneous rupture of membranes, she received an epidural and continued labor, she then progressed to complete dilation. She began to push. She spontaneously vaginally delivered a viable male from the cephalic presentation. The head delivered and right occiput anterior position, no nuchal cord was noted, the anterior shoulder delivered, followed by the posterior shoulder, followed by the body. Baby was placed on mother's abdomen, and a spontaneous cry was heard after stimulation. Delayed cord clamping was employed. After 1 minute of life, and cessation of pulsation of the umbilical cord, the cord was doubly clamped and cut. Cord blood was obtained. The placenta was delivered spontaneously intact with a three-vessel cord. The uterus and vagina were swabbed of all clots and debris. Pitocin was given and the uterus became firm. The cervix vagina and perineum were inspected, a second degree perineal laceration was noted. The anal sphincter muscle was visible, however not lacerated. The second degree perineal laceration was repaired in standard fashion with 3-0 Vicryl. Excellent hemostasis was observed. At this time, the patient requested that I remove a 1.5 cm skin tag of vaginal mucosa tissue that had remained after her prior delivery. This was excised with scissors, and a byvboq-al-wrozy stitch of 3-0 Vicryl was used to obtain hemostasis. Sponge, instrument, needle counts were correct at the conclusion of the delivery x2. Mother and baby are recovering in stable and good condition in the room. For scores and weight, please see nursery records.
--- NOTE | 2019-01-16 12:25 | Anesthesia Procedure Note ---
Date of Service January 16, 2019 Anesthesia Post Epidural Note Vital Signs Vital Signs: Temp Pulse Resp BP Pulse Ox 36.8 C 93 H 18 123/68 99 01/16/19 05:20 01/16/19 12:17 01/16/19 11:32 01/16/19 12:17 01/16/19 10:20 Pain Intensity Lower Back: Pain Intensity: 3 Notes Mental Status: alert / awake / arousable Patient Amnestic to Procedure: No Nausea / Vomiting: adequately controlled Pain: adequately controlled Airway Patency, RR, SpO2: stable & adequate BP & HR: stable & adequate Hydration State: stable & adequate Anesthetic Complications: no major complications apparent Epidural: Removed without complications and With tip intact
[2019-01-16] MEDS: DOCUSATE SODIUM 100 MG CAP PO SCH (21:23)
[2019-01-17] MEDS: ACETAMINOPHEN 325 MG TAB PO PRN ×2 (05:27→13:31)
--- NOTE | 2019-01-17 06:39 | Obstetrical Progress Note ---
Date of Service <David Lee - Last Filed: 01/17/19 07:03> January 17, 2019 Assessment & Plan <David Lee - Last Filed: 01/17/19 07:03> (1) Spontaneous vaginal delivery: 28 y/o, , with @ 38 weeks, B+, GBS- - PPD #1 - Patient is reuesting discharge home today, discharge instructions reviewed at bedside, all questions and concerns addressed. - Encourage ambulation, , continune routine post- care until discharge home today. (2) Normal labor and delivery: Subjective <David Lee - Last Filed: 01/17/19 07:03> Ambulation: ambulating normally Voiding: no voiding problems Passing Gas:: Yes Diet Tolerance:: regular diet Lochia:: Small Feeding Type:: breast feeding Nai states she is doing well this morning and is requesting discharge home. There were no acute events overnight. She denies fevers, chills, headache, chest pain, shortness of breath, nausea, vomiting. Physical Exam <David Lee - Last Filed: 01/17/19 07:03> Vital Signs (Past 24 Hours) Last Vital Signs Temp 36.6 C 01/17/19 04:20 Pulse 69 01/17/19 04:20 Resp 18 01/17/19 04:20 BP 114/76 01/17/19 04:20 Pulse Ox 99 01/16/19 10:20 Constitutional WD/WN, vitals as above cooperative and comfortable Eyes + anicteric sclerae and EOM intact bilaterally Neck normal visual inspection and trachea midline Respiratory normal respiratory effort, lungs clear to auscultation Cardiovascular Rate/Rhythm: regular rate and regular rhythm Heart Sounds: no murmur Gastrointestinal (Abdomen) Percussion/Palpation: abdomen soft; abdomen nontender and no guarding uterine fundus is firm, non-tender, 2-cm inferior to umbilicus Musculoskeletal Head/Neck/Chest: normocephalic and head atraumatic Skin no rashes, warm and dry Neurologic moves all extremities and awake Psychiatric A+Ox3, euthymic affect Results & Data <David Lee - Last Filed: 01/17/19 07:03> Medications Administered Acetaminophen (Tylenol) 650 mg PO Q6H PRN PRN Reason: Pain/MORA/Fever Stop: 02/15/19 10:34 Last Admin: 01/17/19 05:27 Dose: 650 mg Documented by: [id number] Admin: 01/16/19 23:21 Dose: 650 mg Documented by: [id number] Admin: 01/16/19 17:36 Dose: 650 mg Documented by: [id number] Admin: 01/16/19 10:46 Dose: 650 mg Documented by: [id number] Benzocaine (Dermoplast Pain Relieving Bernice) 1 appln EXT PRN PRN PRN Reason: Perineal Discomfort Stop: 02/15/19 10:34 Last Admin: 01/16/19 15:18 Dose: 82.5 appln Documented by: [id number] Docusate Sodium (Colace) 100 mg PO BID GRACE Stop: 02/15/19 20:59 Last Admin: 01/16/19 21:23 Dose: 100 mg Documented by: [id number] Ibuprofen (Motrin) 600 mg PO Q4H PRN PRN Reason: Pain/MORA/Cramping/Fever Stop: 02/15/19 10:34 Last Admin: 01/16/19 21:25 Dose: 600 mg Documented by: [id number] <Joo Shah Jr, MD, FACOG - Last Filed: 01/17/19 08:21> Co-Signing Physician Notes Resident Physician Supervision Note: I was present with Dr. Lee during the history and exam. I discussed the case with the resident and agree with the findings and plan as documented in the note. Any exceptions or clarifications are listed here: D/C instructions given Documented By: Joo Shah Jr, MD, FACOG
[2019-01-17 06:40] LABS: Hematocrit (blood only) 28.3 % (37-47); Hemoglobin 9.8 g/dL (12.0-16.0); Mean Corpuscular Hgb Conc 34.6 g/dL (32-36); Mean Corpuscular Volume 88.4 fL (80-100); Mean Platelet Volume 8.6 fL (7.4-10.4); Platelet Count 154 K/uL (130-400); RDW Coefficient of Variation 13.4 % (11.5-14.5); White Blood Count 7.16 K/uL (4.8-10.8)
[2019-01-17] MEDS: DOCUSATE SODIUM 100 MG CAP PO SCH (08:09)
[2019-01-17] MEDS ORDERED: PRENATAL VITAMIN 1 TAB PO SCH (09:00)
[2019-01-17] MEDS ORDERED: BISACODYL 5 MG TABEC PO SCH (20:00)
== END 2019-01-17 14:45 | disposition home or self-care (01) | DRG 768 ==
LOC: OPB 04:55 → 4S1 04:58 → 4S2 13:00

== ENCOUNTER 2021-02-13 19:11 | Inpatient (IN) ==
[2021-02-13] MEDS ORDERED: LACTATED RINGER'S 1,000 ML IV PRN (19:32)
[2021-02-13] MEDS ORDERED: OXYTOCIN 30 UNITS/500 ML BAG IV PRN ×2 (19:32→20:46)
[2021-02-13] MEDS ORDERED: LIDOCAINE HCL 1% 20 ML VIAL ONE (20:10)
[2021-02-13] MEDS ORDERED: ACETAMINOPHEN 325 MG TAB ONE (20:34)
[2021-02-13] MEDS ORDERED: oxyCODONE/ACETAMINOPHEN 5mg/325mg TAB PO PRN (20:46)
[2021-02-13] MEDS ORDERED: SUPERCREAM 0.870% 15 GM JAR EXT PRN (20:46)
[2021-02-13] MEDS ORDERED: BENZOCAINE 20% AER SPR 82.5 GM CAN EXT PRN (20:46)
[2021-02-13] MEDS ORDERED: DIPHTHERIA/TETANUS/PERTUSSIS 0.5 ML SYR/VIAL IM ONE (20:46)
[2021-02-13] MEDS ORDERED: HYDROCORTISONE ACETATE 25 MG SUPP PR PRN (20:46)
[2021-02-13] MEDS ORDERED: bisacodyL 10 MG SUPP PR PRN (20:46)
[2021-02-13] MEDS ORDERED: DOCUSATE SODIUM 100 MG CAP PO SCH (21:00)
[2021-02-13 21:11] LABS: Hemoglobin 12.6 g/dL (12.0-16.0); Mean Corpuscular Hemoglobin 31.8 pg (25-34); Mean Corpuscular Volume 88.4 fL (80-100); Mean Platelet Volume 9.2 fL (7.4-10.4); Platelet Count 206 K/uL (130-400); RDW Coefficient of Variation 12.9 % (11.5-14.5); Red Blood Count 3.96 M/uL (4.2-5.4); White Blood Count 9.33 K/uL (4.8-10.8)
[2021-02-13] MEDS: IBUPROFEN 600 MG TAB PO PRN (23:09)
--- NOTE | 2021-02-14 00:27 | Delivery Summary ---
Vaginal Delivery Summary Date of Service February 14, 2021 Patient is a 30-year-old 3 para 2-0-0-2 white female who presents on her EDC in active labor. She was 6 cm dilated upon arrival, and ruptured membranes for clear fluid shortly after admission. She progressed rapidly to full dilation with a strong urge to push. She pushed effectively over intact perineum for delivery of a viable male . After the head was delivered, there was a tight nuchal cord noted. This needed to be clamped and cut prior to delivering the rest of the . The rest of the of the infant delivered easily and was placed on mother's abdomen for further attention and drying. After stimulation, the infant was vigorous. The placenta was expressed intact with a three-vessel cord. A first-degree perineal laceration was repaired with 3-0 chromic in the usual fashion. 1% lidocaine was used to anesthetize the laceration site prior to the repair. bleeding was controlled with dilute Pitocin. EBL was less than 200 cc. Mother and were doing well after delivery. Vaginal Delivery Summary and 1st Degree LAC [facility] [place] Vaginal Delivery Charge Delivery Type Details: and 1st Degree LAC
[2021-02-14] MEDS: ACETAMINOPHEN 325 MG TAB PO PRN ×2 (03:17→08:50)
[2021-02-14] MEDS: IBUPROFEN 600 MG TAB PO PRN ×3 (06:41→20:53)
--- NOTE | 2021-02-14 07:02 | Obstetrical Progress Note ---
Date of Service <Srini Martel MD - Last Filed: 02/14/21 07:48> February 14, 2021 Assessment & Plan <Srini Martel MD - Last Filed: 02/14/21 07:48> (1) Encounter for supervision of normal in multigravida: A/P: Nai Espinoza is a 30yo female on PPD#1 following at 40wga. * Patient feels well today; eating well, voiding well, ambulating well * Pain well-controlled with ibuprofen 600mg q4h prn * PNL: Rh pos, RI, GBS neg, COVID neg * Routine care: OOB, ambulation, diet progression as tolerated * After discharge, will have six-week follow-up with Dr. Sonya Andres <Srini Martel MD - Last Filed: 02/14/21 07:48> Nai Espinoza is a 30yo female on PPD#1 following at 40wga. This morning she reports feeling well overall. Reports mild, 2/10 crampy abdominal pain well-managed on analgesics. Tolerating PO intake without nausea or vomiting. Patient has been able to ambulate without lightheadedness or dizziness. Voiding well without difficulty. Lochia continues, though with some improvement this morning. Currently . Review of Systems Denies fever, chills, CP, SOB, cough, breast pain, dysuria, leg pain, leg swelling, headache, and changes in vision. Physical Exam <Srnii Martel MD - Last Filed: 02/14/21 07:48> General: alert, oriented, no acute distress Cardiac: regular rate and rhythm, no murmurs appreciated Respiratory: lungs clear to auscultation bilaterally a/p, no wheezes/rales/rhonchi, no increased work of breathing, symmetrical chest rise, no respiratory distress Abdomen: soft, minimally tender, nondistended, bowel sounds present Uterus: uterine fundus firm, palpable at umbilicus Lower extremities: no lower extremity edema or swelling, no deep calf pain, Brian's negative bilaterally Results & Data ([facility]) <Srini Martel MD - Last Filed: 02/14/21 07:48> Vital Signs (Past 12 Hours) Vital Signs Temp Pulse Pulse Resp BP BP Pulse Ox 02/14/21 03:10 36.8 C 77 18 113/74 02/13/21 23:15 36.8 C 82 18 113/71 98 02/13/21 22:29 85 18 134/75 02/13/21 22:14 85 126/66 02/13/21 21:59 86 18 136/79 02/13/21 21:44 86 123/70 02/13/21 21:29 93 H 18 128/66 02/13/21 21:14 93 H 18 115/74 02/13/21 21:04 92 H 18 130/86 02/13/21 20:44 36.7 C 100 H 18 131/67 02/13/21 20:29 104 H 18 147/73 H 02/13/21 19:43 110 H 18 131/87 02/13/21 19:21 110 H 131/87 <Mary Mendenhall MD, FACOG - Last Filed: 02/14/21 08:02> Co-Signing Physician Notes Resident Physician Supervision Note: I was present with Dr. Martel during the history and exam. I discussed the case with the resident and agree with the findings and plan as documented in the note. Any exceptions or clarifications are listed here: [None] Documented By: Mary Mendenhall MD, FACOG Resident Activity Tracking <Srini Martel MD - Last Filed: 02/14/21 07:48> Resident Involvement: Resident Care Provided Care Provided: OB Delivery
[2021-02-14] MEDS ORDERED: PRENATAL VITAMIN 1 TAB PO SCH (08:00)
[2021-02-14] MEDS ORDERED: bisacodyL 5 MG TABEC PO SCH (20:00)
[2021-02-15] MEDS: IBUPROFEN 600 MG TAB PO PRN (06:00)
[2021-02-15 06:29] LABS: Hematocrit (blood only) 33.6 % (37-47); Hemoglobin 11.6 g/dL (12.0-16.0)
--- NOTE | 2021-02-15 07:17 | Obstetrical Progress Note ---
Date of Service <Srini Martel MD - Last Filed: 02/15/21 07:17> February 15, 2021 Assessment & Plan <Srini Martel MD - Last Filed: 02/15/21 07:17> (1) Encounter for supervision of normal in multigravida: A/P: Nai Espinoza is a 30yo female on PPD#2 following at 40wga. * Patient feels well today; eating well, voiding well, ambulating well * Pain well-controlled with ibuprofen 600mg q4h prn * PNL: Rh pos, RI, GBS neg, COVID neg * Routine care: OOB, ambulation, diet progression as tolerated * After discharge, will have six-week follow-up with Dr. Sonya Andres <Srini Martel MD - Last Filed: 02/15/21 07:17> Nai Espinoza is a 30yo female on PPD#2 following at 40wga. This morning she reports feeling great. Reports minimal abdominal pain well-managed on analgesics. Tolerating PO intake without nausea or vomiting. Patient has been able to ambulate without lightheadedness or dizziness. Voiding well without difficulty. Lochia continues, though with some improvement this morning. Currently . Denies fever, chills, CP, SOB, cough, breast pain, dysuria, leg pain, leg swelling, headache, and changes in vision. Physical Exam <Srini Martel MD - Last Filed: 02/15/21 07:17> General: alert, oriented, no acute distress Cardiac: regular rate and rhythm, no murmurs appreciated Respiratory: lungs clear to auscultation bilaterally a/p, no wheezes/rales/rh onchi, no increased work of breathing, symmetrical chest rise, no respiratory distress Abdomen: soft, minimally tender, nondistended, bowel sounds present Uterus: uterine fundus firm, palpable below umbilicus Lower extremities: no lower extremity edema or swelling, no deep calf pain, Brian's negative bilaterally Results & Data ([facility]) <Srini Martel MD - Last Filed: 02/15/21 07:17> Vital Signs (Past 12 Hours) Vital Signs Temp Pulse Resp BP 02/15/21 00:00 36.7 C 74 20 113/75 02/14/21 20:15 36.8 C 83 18 129/80 <Tomas Hi MD - Last Filed: 02/16/21 08:26> Co-Signing Physician Notes Patient seen and evaluated and agree with the above findings and plan. Routine OB care. Stable for discharge preferred Resident Activity Tracking <Srini Martel MD - Last Filed: 02/15/21 07:17> Resident Involvement: Resident Care Provided Care Provided: OB Delivery
== END 2021-02-15 10:15 | disposition home or self-care (01) | DRG 807 ==
LOC: OPB 19:11 → 4S1 19:14 → 4S2 23:19
DX: Z3A.40 40 weeks gestation of pregnancy; O69.1XX0 Labor and delivery complicated by cord around neck, with compression, not applicable or unspecified; Z20.822 Contact with and (suspected) exposure to COVID-19; Z37.0 Single live birth; O70.0 First degree perineal laceration during delivery

== ENCOUNTER 2023-01-30 07:57 | Inpatient (IN) ==
[2023-01-30] MEDS ORDERED: OXYTOCIN 30 UNITS/500 ML BAG IV PRN ×3 (08:21→18:12)
[2023-01-30] MEDS ORDERED: LIDOCAINE 1% LOCAL 20 ML VIAL INFIL PRN (08:21)
--- NOTE | 2023-01-30 08:53 | History & Physical Report ---
Date of Service January 30, 2023 Assessment & Plan (1) Gestational diabetes mellitus (GDM) affecting , antepartum: Plan: 32 yo at 40 6/7 wga presents for IOL VSS Fetus cat 1 Labor - not sure if early labor, discussed pit just to make things regular nad pt amenable GBS neg epidural PRN Admission and Anticipated Discharge Date Admission Date: January 30, 2023 History of Present Illness Chief Complaint: IOL Primary Care Provider: Jovana Gutierrez, 32 yo at 40 6/7 wga presents for post dates IOL. 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 Hx: G1 2016 VAVD at 38 wks G2 2018 at 38 wks G3 2020 at 40 wks G4 current denies hx STIs 07/2020 neg cotest Allergies Allergy/AdvReac Type Severity Reaction Status Date / Time mustard Allergy Severe SEVERE ABD Verified 01/30/23 08:59 PAIN, GI UPSET egg Allergy Intermediate Gastrointestinal Verified 01/30/23 08:59 Upset whey Allergy Intermediate GI ISSUES Verified 01/30/23 08:59 No Known Drug Allergies Allergy Unknown Verified 01/30/23 08:59 milk AdvReac Intermediate GI UPSET Verified 01/30/23 08:59 Home Medications Medication Instructions Recorded Confirmed Type vits no.124-ferrous fum 1 tab PO DAILY 02/13/21 01/30/23 History 27 mg iron-folic acid 800 mcg tablet ( Vitamin) acetone (urine) test (Ketone Urine #50 ea 08/10/22 01/30/23 Rx Test strips) blood sugar diagnostic (OneTouch #150 ea 08/10/22 01/30/23 Rx Verio test strips) lancets 33 gauge (OneTouch Delica #150 ea 08/10/22 01/30/23 Rx Lancets) Patient History Medical History Dermoid cyst removed in Dyslipidemia Encounter for pre-operative examination Encounter for supervision of normal in multigravida History of chicken pox Irregular menstrual cycle Normal labor and delivery Spontaneous vaginal delivery Visit for wound check Surgical History H/O right inguinal hernia repair Hernia S/P ovarian cystectomy Family History Grandmother (Maternal) Stroke Denies family history of Ovarian cancer Breast cancer Colorectal cancer Social History Smoking Status: Never smoker Second Hand Exposure: No; Do You Dip or Chew Tobacco: No; Hx Alcohol Use: No Hx Substance Use: No Preferred Language: Nepalese Communication Ability: Effective 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 Beliefs That Will Affect Care: None marital status: marital status details: Marshall Espinoza [phone] Current Living Situation: Spouse and Family Current Living Situation Comment: Pt lives with Marshall and 3 sons current occupational status: employed 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 Other Information That Helps Us Care for You: No Feels Safe at Home: Yes Safety Concerns: Feels Safe At This Time Assistive Devices: Glasses Physical Exam Genitourinary: OB Exam Abdomen: + vertex and + estimated weight (7-8) Manual OB Exam: + cervical dilation (3-4), + cervical effacement 50% and + station -2 OB Exam Monitor Tracing: + external FHT monitor used, + external uterine monitor used (q4) and + category I (135/mod/+accel/-decel) Results & Data Vital Signs (Past 12 Hours) Vital Signs Pulse BP 01/30/23 08:26 91 H 137/81 Laboratory Results OB Labs: Blood Type O Positive 06/28/22 Antibody Screen NEGATIVE 06/28/22 Hemoglobin 11.5 g/dl (12.0-16.0) L 11/08/22 Hematocrit 33.6 % (37.0-47.0) L 11/08/22 Mean Corpuscular Volume 87.3 fL (80.0-100.0) 06/28/22 Platelet Count 296 K/uL (130-400) 06/28/22 Rubella IgG Antibody Immune (Immune) 06/28/22 Rapid Plasma Reagin Nonreactive (Nonreactive) 06/28/22 Hepatitis B Surface Antigen Neg (Neg) 07/27/20 Hepatitis B Surface Antigen. NON-REACTIVE (NON-REACTIVE) 06/28/22 Hepatitis C Antibody (EIA) NON-REACTIVE (NON-REACTIVE) 06/28/22 HIV (1&2) Ab and P24 Ag, 4th Gener Neg (Neg) 07/27/20 HIV (1&2) Ag and Ab Confirmation NON-REACTIVE (NON-REACTIVE) 06/28/22 Glucose 1 Hour 50 gm Load 149 mg/dl (70-130) H 11/25/20 OB Optional Labs: Chlamydia trachomatis RNA Not Detected (NotDetected) 06/28/22 Neisseria gonorrhoeae RNA Not Detected (NotDetected) 06/28/22 Labs Reviewed: cf/sma 2014, declines repeat 2020 - sln declines cfdna - sln declines afp--akh GBS neg Diagnostic Findings 12/28 EFW 61% ant plac Coding Level of Care Code None Diagnoses Gestational diabetes mellitus (GDM) affecting , antepartum O24.419
[2023-01-30 09:10] LABS: Hematocrit (blood only) 33.4 % (37.0-47.0); Hemoglobin 11.9 g/dl (12.0-16.0); Mean Corpuscular Hemoglobin 30.8 pg (25.0-34.0); Mean Corpuscular Hgb Conc 35.6 g/dL (32.0-36.0); Mean Corpuscular Volume 86.5 fL (80.0-100.0); Mean Platelet Volume 9.4 fL (9.4-12.4); Platelet Count 207 K/uL (130-400); RDW Coefficient of Variation 12.9 % (11.5-14.5); RDW Standard Deviation 40.3 fL (36.4-46.3); Red Blood Count 3.86 M/uL (4.20-5.40)
[2023-01-30] MEDS: LACTATED RINGER'S 1,000 ML IV PRN ×2 (09:18→12:16)
[2023-01-30] MEDS ORDERED: BUPIVACAINE 0.25% PF 30 ML VIAL ONE (11:40)
[2023-01-30] MEDS ORDERED: fentaNYL citrate PF 100 MCG/2 ML VIAL ONE (11:40)
[2023-01-30] MEDS ORDERED: ePHEDrine sulfate 50 MG/ML AMP ONE (11:40)
[2023-01-30] MEDS ORDERED: SODIUM CHLORIDE 0.9% PF INJ 10 ML VIAL ONE (11:40)
[2023-01-30] MEDS ORDERED: fentaNYL 2MCG/ML ROPIVACAINE 1.25MG/ML 100 ML BAG EPI ONE (11:41)
[2023-01-30] MEDS ORDERED: LIDOCAINE 2%/EPINEPHRINE 1:200,000 20 ML PF ONE (11:41)
[2023-01-30] MEDS ORDERED: NALBUPHINE HCL INJ 10 MG/ML AMP IV PRN (12:05)
[2023-01-30] MEDS ORDERED: fentaNYL 2MCG/ML ROPIVACAINE 1.25MG/ML 100 ML BAG EPI PRN (12:05)
[2023-01-30] MEDS ORDERED: diphenhydrAMINE 50 MG/ML VIAL IV PRN (12:05)
[2023-01-30] MEDS ORDERED: NALOXONE HCL 0.4 MG/1 ML VIAL/CARP IV PRN (12:05)
[2023-01-30] MEDS ORDERED: ONDANSETRON INJ 2 MG/ML 2 ML VIAL IV PRN (12:05)
[2023-01-30] MEDS ORDERED: NALOXONE HCL 1 MG in SODIUM CHLORIDE 0.9% 1000ML 1,000 ML IV PRN (12:05)
[2023-01-30] MEDS ORDERED: ePHEDrine sulfate 50 MG/ML AMP IV PRN (12:05)
--- NOTE | 2023-01-30 12:05 | Anesthesiology Consultation ---
Date of Service January 30, 2023 Assessment & Plan ASA ASA3 Proposed Anesthesia Anesthesia Type: Labor Epidural Risk / Benefits Reviewed With: PT / POA / Parent / Guardian, Accepts Plan and Informed Consent Obtained History Height/Weight Height: 5 ft 2 in Weight: 65.317 kg Allergies Allergy/AdvReac Type Severity Reaction Status Date / Time mustard Allergy Severe SEVERE ABD Verified 01/30/23 08:59 PAIN, GI UPSET egg Allergy Intermediate Gastrointestinal Verified 01/30/23 08:59 Upset whey Allergy Intermediate GI ISSUES Verified 01/30/23 08:59 No Known Drug Allergies Allergy Unknown Verified 01/30/23 08:59 milk AdvReac Intermediate GI UPSET Verified 01/30/23 08:59 Medications Home Medications Medication Instructions Recorded Confirmed Last Taken vits no.124-ferrous fum 1 tab PO DAILY 02/13/21 01/30/23 01/28/23 07:30 27 mg iron-folic acid 800 mcg tablet ( Vitamin) acetone (urine) test (Ketone Urine #50 ea 08/10/22 01/30/23 Unknown Test strips) blood sugar diagnostic (OneTouch #150 ea 08/10/22 01/30/23 Unknown Verio test strips) lancets 33 gauge (OneTouch Delica #150 ea 08/10/22 01/30/23 Unknown Lancets) Active Medications Generic Name Dose Route Start Last Admin Trade Name Freq PRN Reason Stop Dose Admin Oxytocin 30 units in 500 mls @ 333.333 mls/hr 01/30/23 08:21 01/30/23 16:31 Pitocin IV 03/01/23 08:20 20 units/hr .Q1H30M PRN 333.3 mls/hr Bleeding Control Administration Protocol 20 UNITS/HR Lactated Ringer's 1,000 mls @ 125 mls/hr 01/30/23 08:21 01/30/23 16:00 Lr IV 02/01/23 08:20 Infused .Q8H PRN Infusion L&D Protocol Protocol Oxytocin 30 units in 500 mls @ 999 mls/hr 01/30/23 08:21 01/30/23 16:00 Pitocin IV 02/01/23 08:20 59.94 units/hr .Q31M PRN 999 mls/hr Labor Induction/Augmentation Titration Protocol 59.94 UNITS/HR Past Medical History Medical History Dermoid cyst removed in Dyslipidemia Encounter for pre-operative examination Encounter for supervision of normal in multigravida History of chicken pox Irregular menstrual cycle Normal labor and delivery Spontaneous vaginal delivery Visit for wound check Exercise / Class Metabolic Activity II 4-5 Yardwork/Stairs/Walk up hill Past Family History Family History Grandmother (Maternal) Stroke Denies family history of Ovarian cancer Breast cancer Colorectal cancer Past Surgical History Surgical History H/O right inguinal hernia repair Hernia S/P ovarian cystectomy Past Anesthesia History No Hx of Anesthesia Complications and No Family Hx of Anesthesia Complications History of PONV No Hx of PONV and No Hx of Motion Sickness Social History Smoking Status: Never smoker Do You Dip or Chew Tobacco: No Hx Alcohol Use: No Hx Substance Use: No substance use type: does not use Review of Systems denies fever/cough/ colds/ chest pain/ SOB/ YASMEEN denies YASMEEN Physical Exam Vital Signs Last Vital Signs Temp 36.5 C 01/30/23 16:15 Pulse 81 01/30/23 17:01 Resp 18 01/30/23 17:01 BP 134/79 01/30/23 17:01 Pulse Ox 99 01/30/23 16:29 O2 Del Method Room Air 01/30/23 08:34 ENMT Mouth: no TMJ abnormality and no dentition abnormality Thyromental Distance: > or= 3.5 Finger Breadths Mallampati Class: II Neck neck extension not limited Respiratory normal respiratory effort; no respiratory distress Auscultation: lungs clear to auscultation bilaterally Cardiovascular Rate/Rhythm: regular rate and regular rhythm Neurologic moves all extremities Psychiatric Orientation: alert and oriented x 3 Testing Laboratory Results 01/30/23 08:38 01/30/23 01/30/23 12:43 08:31 POC Glucose 93 92
--- NOTE | 2023-01-30 13:52 | Labor Progress Brief Note ---
Date of Service January 30, 2023 Subjective comfortable w/epidural Assessment & Plan (1) Gestational diabetes mellitus (GDM) affecting , antepartum: Plan: 32 yo at 40 6/7 wga presents for IOL VSS Fetus cat 1 Labor - pit was turned off due to decel just after epidural that has since resolved, still elier on her own after pit. AROM to see if will help progress w/o pit, may need to restart later but will see GBS neg epidural in place Admission and Anticipated Discharge Date Admission Date: January 30, 2023 Physical Exam Genitourinary: Manual OB Exam: + cervical dilation 5 cm, + cervical effacement 70%, + station -2 and + amniotic fluid (arom clear) OB Exam Monitor Tracing: + external FHT monitor used, + external uterine monitor used (q4) and + category I (130/mod/+accel/-decel) Results & Data Vital Signs (Past 12 Hours) Vital Signs Temp Pulse Resp BP Pulse Ox O2 Del Method 01/30/23 13:49 89 100 01/30/23 13:46 91 H 116/68 01/30/23 13:44 85 100 01/30/23 13:39 81 100 01/30/23 13:34 89 100 01/30/23 13:30 16 01/30/23 13:30 16 01/30/23 13:29 100 01/30/23 13:29 84 01/30/23 13:29 71 110/55 L 01/30/23 13:24 78 100 01/30/23 13:19 82 100 01/30/23 13:18 74 130/62 01/30/23 13:15 96 H 162/127 H 01/30/23 13:14 81 100 01/30/23 13:09 80 100 01/30/23 13:00 16 01/30/23 13:00 16 01/30/23 13:07 85 109/55 L 01/30/23 13:04 76 127/58 L 100 01/30/23 13:02 77 130/58 L 01/30/23 13:01 77 112/58 L 01/30/23 12:59 84 100 01/30/23 12:58 95 H 111/63 01/30/23 12:56 84 116/62 01/30/23 12:54 100 01/30/23 12:54 99 H 01/30/23 12:54 88 116/61 01/30/23 12:53 103 H 127/77 01/30/23 12:52 89 125/74 01/30/23 12:50 92 H 129/67 01/30/23 12:49 86 99 01/30/23 12:48 85 114/70 01/30/23 12:46 96 H 119/72 01/30/23 12:44 87 117/72 99 01/30/23 12:42 90 118/68 01/30/23 12:40 96 H 123/72 01/30/23 12:39 88 99 01/30/23 12:38 94 H 126/75 01/30/23 12:36 109 H 119/70 01/30/23 12:34 92 H 127/72 99 01/30/23 12:32 95 H 121/58 L 01/30/23 12:30 102 H 18 123/77 01/30/23 12:29 98 H 99 01/30/23 12:28 89 121/73 01/30/23 12:27 91 H 131/82 01/30/23 12:24 96 H 98 01/30/23 12:19 102 H 99 01/30/23 12:14 106 H 99 01/30/23 12:09 101 H 99 01/30/23 12:00 16 01/30/23 12:00 16 01/30/23 12:04 100 H 99 01/30/23 11:30 18 01/30/23 11:30 18 01/30/23 11:59 103 H 100 01/30/23 11:56 176 H 82 L 01/30/23 11:33 18 01/30/23 11:33 98.1 F 18 01/30/23 11:51 98 H 117/78 01/30/23 11:00 16 01/30/23 11:00 16 01/30/23 10:30 107 H 122/77 01/30/23 10:14 115 H 114/78 01/30/23 09:56 18 01/30/23 09:56 18 01/30/23 09:46 111 H 135/82 01/30/23 09:29 99 H 136/85 01/30/23 08:26 91 H 137/81 01/30/23 08:34 98.1 F 18 Room Air Coding Level of Care Code None Diagnoses Gestational diabetes mellitus (GDM) affecting , antepartum O24.419
--- NOTE | 2023-01-30 16:17 | Delivery Summary ---
Vaginal Delivery Summary Date of Service January 30, 2023 Vaginal Delivery Summary and 2nd Degree LAC PREOPERATIVE DIAGNOSIS: 1. Single intrauterine at 40 6/7 wga 2. Post-dates IOL POSTOPERATIVE DIAGNOSIS: 1. Single intrauterine at 40 6/7 wga 2. Post-dates IOL 3. Delivered PROCEDURE: 1. Normal spontaneous vaginal delivery. SURGEON: Malou Quiñones MD ANESTHESIA: Epidural. ESTIMATED BLOOD LOSS: 300 mL FLUIDS: Continuous LR. URINE OUTPUT: None. COMPLICATIONS: None. CONDITION: Stable. INDICATIONS: 32 yo at 40 6/7 wga presented for IOL this morning. Induction was begun with pitocin and she received an epidural for pain control. She then underwent AROM and progressed to complete and desired to push. FINDINGS: A viable female infant, weight pending with Apgars of 8 and 9 at 1 and 5 minutes respectively. SPECIMEN: Cord blood OPERATIVE REPORT: The patient progressed to 10 cm, 100% effaced and +2 station, pushed over intact perineum with anesthesia to deliver a viable female , weight and Apgars as above. Head of delivered in KRISTYN position. No nuchal cord was present. Body and shoulders were delivered without difficulty. was delivered to maternal abdomen and nursing staff. Delayed cord clamping was performed for 60 seconds. Cord was clamped and cut. Cord blood was obtained. Placenta delivered spontaneously intact with 3-vessel cord. IV oxytocin and fundal massage were given for excellent hemostasis. Vagina, cervix, perineum, and placenta were inspected. A second degree laceration was noted and repaired with 3-0 vicryl in the usual fashion. Sponge and needle counts correct x2. No sponges were left behind. Mother and stable in immediate period. [facility] [place]aginal Delivery Charge Vaginal Delivery Codes: 95463 global code for the antepartum, delivery, and post- Delivery Type Details: and 2nd Degree LAC
--- NOTE | 2023-01-30 17:11 | Anesthesia Procedure Note ---
Date of Service January 30, 2023 Anesthesia Post Epidural Note Vital Signs Vital Signs: Temp Pulse Resp BP Pulse Ox O2 Del Method 36.5 C 81 18 134/79 99 Room Air 01/30/23 16:15 01/30/23 17:01 01/30/23 17:01 01/30/23 17:01 01/30/23 16:29 01/30/23 08:34 Pain Intensity Abdomen: Pain Intensity: 0 Notes Mental Status: alert / awake / arousable and participated in evaluation Nausea / Vomiting: adequately controlled Pain: adequately controlled Airway Patency, RR, SpO2: stable & adequate BP & HR: stable & adequate Hydration State: stable & adequate Neuraxial Anesthesia: was administered and sensory block resolved Anesthetic Complications: no major complications apparent and Pt Satisfied with anesthetic care Epidural: Removed without complications and With tip intact
[2023-01-30] MEDS ORDERED: bisacodyL 10 MG SUPP PR PRN (18:12)
[2023-01-30] MEDS ORDERED: BENZOCAINE 20% AER SPR 82.5 GM CAN EXT PRN (18:12)
[2023-01-30] MEDS ORDERED: DIPHTHERIA/TETANUS/PERTUSSIS 0.5mL SYR/VIAL (Age 7+yrs) IM ONE (18:12)
[2023-01-30] MEDS ORDERED: IBUPROFEN 600 MG TAB PO PRN (18:12)
[2023-01-30] MEDS ORDERED: HYDROCORTISONE ACETATE 25 MG SUPP PR PRN (18:12)
[2023-01-30] MEDS ORDERED: ACETAMINOPHEN 325 MG TAB PO PRN (18:12)
[2023-01-30] MEDS: DOCUSATE SODIUM 100 MG CAP PO SCH (20:25)
--- NOTE | 2023-01-31 06:06 | Obstetrical Progress Note ---
Date of Service January 31, 2023 Assessment & Plan (1) Polyhydramnios: (2) Gestational diabetes mellitus (GDM) affecting , antepartum: Plan Nai is a 32 y/o female who is PPD #1 following delivery at 40 6/7 weeks -Meeting all milestones -Vital signs reviewed and WNL -O+/GBS negative/Rubella immune -Follow up in 6 weeks for appointment -Continue routine care -Advised patient on red flag signs for changes/worsening of calf pain -Plan to d/c home later today at 24 hr [email or web address] Admission and Anticipated Discharge Date Admission Date: January 30, 2023 Supervising Physician Co-Signing Physician Notes Resident Physician Supervision Note: I interviewed and examined the patient. Discussed with Dr. Isaacs and agree with findings and plan as documented in the note. Any exceptions or clarifications are listed here: PP1 s/p , doing well. has subha horse in R leg that feels like her prior ones. VSS, exam benign and wnl. Both calves are symmetric, nonerythematous, and no swelling noted. Desires dc home today, ok to do so at 24 hrs. No s/s of VTE, precautions reviewed. Documented By: Malou Quiñones MD Mckenna Trimble is a 32 y/o female who is PPD #1 following delivery at 40 6/ 7 weeks. She reports feeling well overall this morning. Notes abdominal cramping with breast feeding, pain well managed on Motrin. Voiding without issue. Tolerating meals overnight and able to ambulate some. No significant changes in bleeding overnight. She did note a subha horse in her right calf- notes that she has these regularly in and period. Currently breast feeding. Patient and her hopeful to d/c later today. Review of Systems Constitutional: no fever, no chills and no sweats Respiratory: no cough, no dyspnea and no wheezing Cardiovascular: no chest pain, no palpitations and no calf pain Genitourinary: no dysuria Neurologic: no headache(s) Physical Exam Constitutional: WD/WN, vitals as above no acute distress Respiratory: no respiratory distress Auscultation: lungs clear to auscultation bilaterally; no rales, no rhonchi and no wheezes Cardiovascular: RRR, no murmur, no edema Extremities: no edema Gastrointestinal (Abdomen): Inspection/Auscultation: normal bowel sounds Genitourinary: Uterine fundus firm, palpable below the umbilicus. Results & Data Vital Signs (Past 12 Hours) Vital Signs Temp Pulse Pulse Resp BP BP 01/31/23 03:45 36.4 C L 83 18 104/69 01/30/23 23:00 36.6 C 85 18 127/76 01/30/23 19:30 36.8 C 97 H 18 119/74 01/30/23 18:15 36.8 C 18 01/30/23 18:31 98 H 132/87 01/30/23 18:16 90 131/78 Resident Activity Tracking Resident Involvement: Resident Care Provided Care Provided: OB Delivery
[2023-01-31] MEDS: DOCUSATE SODIUM 100 MG CAP PO SCH (07:38)
[2023-01-31] MEDS ORDERED: PRENATAL VITAMIN 1 TAB PO SCH (08:00)
[2023-01-31] MEDS ORDERED: FERROUS SULFATE 325 MG TAB PO SCH (08:00)
[2023-01-31] MEDS ORDERED: bisacodyL 5 MG TABEC PO SCH (20:00)
== END 2023-01-31 17:15 | disposition home or self-care (01) | DRG 807 ==
LOC: 4S1 07:57 → 4E2 19:11